=== PATIENT | male | born 1965 | race Caucasian/White ===

== ENCOUNTER 2019-10-29 15:00 | Emergency (ER) | payer OTHER ==
[~2019-10-29] VITALS: Ht 182.9 cm; Wt 104.3 kg
[2019-10-29 15:18] VITALS: BP_SYST 173; BP_SYST 194; BP_DIAS 114; BP_DIAS 117
--- NOTE | 2019-10-29 15:27 | NUR ---
WAIT AT LOBBY.
--- NOTE | 2019-10-29 15:50 | NUR ---
54 Y/O M C/C BACK PAIN RADIATING TO THE RLE CAUSING NUMBNESS X SINCE SUNDAY. DENIES TRAUMA. PER PT DOING "HEAVY DUTY" ACTIVITIES THAT CAUSED THE PAIN. CURRENTLY 5/10, SHARP FEELING. RLE WITH WDL ROM,CMS, EQUAL SENSATION ON BOTH LOWER EXTREMITIES. PT NKA. HX HTN, ANXIETY. RX ATENOLOL. NO V/D. HAS SLIGHT NAUSEA. SIDE RAIL X1. FAMILY AT BEDSIDE.
[2019-10-29] MEDS ORDERED: FAMOTIDINE 20 MG TAB PO ONE (16:05)
[2019-10-29] MEDS ORDERED: KETOROLAC 60 MG/2 ML VIAL IM ONE (16:05)
[2019-10-29 18:00] VITALS: BP 148/96
--- NOTE | 2019-10-29 18:00 | NUR ---
Patient discharged with v/s stable. Written and verbal after care instructions given and explained. Patient alert, oriented and verbalized understanding of instructions. Ambulatory with steady gait. All questions addressed prior to discharge. ID band removed. Patient advised to follow up with PMD. Rx of TRAMADOL,ZOFRAN,NAPROSYN given. Patient educated on indication of medication including possible reaction and side effects. Opportunity to ask questions provided and answered.
== END 2019-10-29 18:00 | disposition home or self-care (01) ==
LOC: MED 15:00
DX: M54.41 Lumbago with sciatica, right side (principal); I10 Essential (primary) hypertension; F41.9 Anxiety disorder, unspecified
CPT/HCPCS: 96372; 99283; J1885

== ENCOUNTER 2021-06-11 19:07 | Emergency (ER) | payer OTHER ==
[~2021-06-11] VITALS: Ht 180.3 cm; Wt 99.8 kg
[2021-06-11 19:41] VITALS: BP 153/90
--- NOTE | 2021-06-11 19:44 | NUR ---
TO LOBBY A/W BED AMBULATORY
--- NOTE | 2021-06-11 19:56 | NUR ---
AMBULATORY TO BED #3
--- NOTE | 2021-06-11 20:00 | NUR ---
SEE COMPLETE ASSESMENT. PT ATTACHED TO CARDIAC MONITORING. VSS. ALL NEEDS MET. WILL CONTINUE TO MONITOR.
[2021-06-11 20:32] LABS: BASOPHILS # (AUTO) 0.1 K/uL (0.00-0.22); BASOPHILS % (AUTO) 2.1 % (0.0-2.0); EOSINOPHILS # (AUTO) 0.2 K/uL (0-0.4); EOSINOPHILS % (AUTO) 2.4 % (0.0-4.0); HEMATOCRIT 40.3 % (36-52); HEMOGLOBIN 13.8 g/dL (12.0-18.0); LYMPHOCYTES % (AUTO) 32.3 % (20.5-51.1); MEAN CORPUSCULAR HEMOGLOBIN 34 pg (27-31); MEAN CORPUSCULAR HGB CONC 34 g/dL (33-37); MEAN CORPUSCULAR VOLUME 98.7 fL (80-94); MONOCYTES # (AUTO) 0.7 K/uL (0.8-1.0); MONOCYTES % (AUTO) 11.2 % (1.7-9.3); NEUTROPHILS # (AUTO) 3.3 K/uL (1.8-7.7); PLATELET COUNT (AUTO) 136 K/uL (140-450); RED BLOOD CELL COUNT(AUTO) 4.08 MIL/uL (4.20-6.10); RED CELL DISTRIBUTION WIDTH 13.3 % (11.6-13.7); WHITE BLOOD COUNT (AUTO) 6.3 K/uL (4.8-10.8)
[2021-06-11 20:53] LABS: ALBUMIN 3.9 g/dL (3.4-5.0); CARBON DIOXIDE 29.8 mmol/L (21-32); CREATININE 1.1 mg/dL (0.6-1.3); POTASSIUM 4.8 mmol/L (3.5-5.1); TOTAL BILIRUBIN 1.8 mg/dL (0.0-1.0)
[2021-06-11 21:50] VITALS: BP 147/84
--- NOTE | 2021-06-11 22:08 | NUR ---
Patient discharged with v/s stable. Written and verbal after care instructions given and explained. Patient verbalized understanding. Ambulatory with steady gait. All questions addressed prior to discharge. Advised to follow up with PMD.
== END 2021-06-11 22:08 | disposition home or self-care (01) ==
LOC: MED 19:07
DX: T67.5XXA Heat exhaustion, unspecified, initial encounter (principal); I49.3 Ventricular premature depolarization; R00.2 Palpitations; R07.9 Chest pain, unspecified; I10 Essential (primary) hypertension; X58.XXXA Exposure to other specified factors, initial encounter; Y93.89 Activity, other specified; Y92.89 Other specified places as the place of occurrence of the external cause; Y99.8 Other external cause status
CPT/HCPCS: 36415; 71045; 80053; 83690; 83880; 84484; 85025; 93005; 99285; Q0092

== ENCOUNTER 2021-06-24 09:51 | Day surgery (SDC) | payer OTHER ==
[~2021-06-24] VITALS: Ht 180.3 cm; Wt 100.7 kg
[2021-06-24] MEDS ORDERED: fentaNYL citrate 0.05 MG/ML VIAL ONE (12:04)
[2021-06-24] MEDS ORDERED: LIDOCAINE 2% 100 MG/5 ML UJET TP ONE (12:04)
[2021-06-24] MEDS ORDERED: fentaNYL citrate 0.05 MG/ML VIAL IVP ONE (14:20)
== END 2021-06-24 13:05 | disposition home or self-care (01) ==
LOC: MDS 09:51 → MFCC 09:51 → MDS 13:05
PROVIDERS: ATTEND Internal Medicine Gastroenterology
DX: Z12.11 Encounter for screening for malignant neoplasm of colon (principal); K57.30 Diverticulosis of large intestine without perforation or abscess without bleeding; I10 Essential (primary) hypertension; E78.5 Hyperlipidemia, unspecified; F32.9 Major depressive disorder, single episode, unspecified; Z79.899 Other long term (current) drug therapy
CPT/HCPCS: 45378; J3010

== ENCOUNTER 2022-02-19 21:17 | Emergency (ER) | payer OTHER ==
[~2022-02-19] VITALS: Ht 180.3 cm; Wt 101.2 kg
[2022-02-19 21:26] VITALS: BP 133/84
--- NOTE | 2022-02-19 21:32 | NUR ---
pt taken to bed 11. is at bedside.
--- NOTE | 2022-02-19 21:46 | NUR ---
ERMD AT BEDSIDE ASSESSING PT.
--- NOTE | 2022-02-19 21:53 | NUR ---
56 Y.O. M BIB C/O LAC ON R FORARM S/P CUT SELF WITH METAL PIECE OF A SAW x4-5hrs. pt applied steristips. PT IS UP TO DATE ON TDAP. 2 IN. LAC ON UPPER R FOREARM WITH NO PAIN. BLEEDING IS CONTROLLED. STILL HAS FEELING IN THE ARM AND HAND. IS ABLE TO MOVE FINGERS. hx:depression and anxiety nka
[2022-02-19] MEDS: LIDOCAINE MPF 1% 10 MG/ML VIAL INJ ONE ×2 (21:58→22:20)
[2022-02-19] MEDS ORDERED: cefTRIAXone 250 MG in LIDOCAINE MPF 1% 0.9 ML IM ONE (22:10)
== END 2022-02-19 22:30 | disposition home or self-care (01) ==
LOC: MED 21:17
DX: S51.811A Laceration without foreign body of right forearm, initial encounter (principal); I10 Essential (primary) hypertension; W26.0XXA Contact with knife, initial encounter; Y93.89 Activity, other specified; Y92.89 Other specified places as the place of occurrence of the external cause; Y99.8 Other external cause status
CPT/HCPCS: 12002; 99282; J2001

== ENCOUNTER 2024-03-30 16:23 | Emergency (ER) | payer OTHER ==
[~2024-03-30] VITALS: Ht 180.3 cm; Wt 104.3 kg
[2024-03-30 16:32] VITALS: BP 126/61; PULSE 94; RESP 18; TEMP 98.2; O2SAT 94
[2024-03-30] MEDS ORDERED: CEPH500C16 PO (17:07)
[2024-03-30 17:24] VITALS: BP 126/61; PULSE 94; RESP 18; TEMP 98.2; O2SAT 94
== END 2024-03-30 17:24 | disposition home or self-care (01) ==
LOC: MED 16:23
DX: S91.332A Puncture wound without foreign body, left foot, initial encounter (principal); I11.0 Hypertensive heart disease with heart failure; I50.9 Heart failure, unspecified; Z79.01 Long term (current) use of anticoagulants; W22.8XXA Striking against or struck by other objects, initial encounter; Y93.89 Activity, other specified; Y92.009 Unspecified place in unspecified non-institutional (private) residence as the place of occurrence of the external cause; Y99.8 Other external cause status
CPT/HCPCS: 99283